=== PATIENT | female | born 1980 | race Caucasian/White ===

== ENCOUNTER 2020-01-16 09:47 | Emergency (ER) | payer MEDICAID, SELFPAY ==
[2020-01-16 09:53] VITALS: BP 128/84; PULSE 89; RESP 16; TEMP 36.8; O2SAT 98
--- NOTE | 2020-01-16 10:05 | ED_ITS ---
HPI - Extremity Problem General: Chief complaint: Extremity Problem,Nontraumatic Stated complaint: RIGHT LEG PAIN Time Seen by Provider: 01/16/20 09:54 History of Present Illness: HPI Narrative: Patient is a 39-year-old female who comes to the ED with right leg pain and swelling. Patient was and delivered her child almost 2 weeks ago on January 03. In the last 24 hours she is noticed having increased swelling in her right thigh and pain in her right thigh. She rates the pain when she sitting about a 4 out of 10 but when she gets up and moves on it she says it is about an 8 out of 10. Patient took Tylenol last night for the pain. She states she has been less active post delivery of baby. She has no history of blood clots and is not currently on any blood thinners. Denies any chest pain, shortness of breath, cough. Associated symptoms: Deny chest pain, fever(s) or rash Review of Systems Const: Denies: fever, chills or fatigue Eyes: Denies: change in vision or eye discomfort ENMT: Denies: throat pain, painful swallowing, nasal discharge or nasal congestion Card: Denies: chest pain, palpitations, edema, swelling of feet/ankles, shortness of breath on exertion or shortness of breath when lying down Resp: Denies: shortness of breath, productive cough or non-productive cough GI: Denies: abdominal pain, nausea, vomiting, diarrhea, constipation or blood in stool : Denies: flank pain, painful urination or blood in urine Musc: Reports: extremity pain (Right leg (thigh)) and extremity swelling (right leg (thigh)); Denies: neck pain or back pain Skin/Breast: Denies: rash or new lesion Neuro: Denies: headache, numbness in extremities or weakness in extremities PFS ED PFSH: Social History Smoking and tobacco status: never smoked Physical Exam Narrative: EXAM NARRATIVE: Patient is a 39-year-old female who is in no apparent distress and sitting comfortably on the exam bed when I enter the room. Const: COMMON NORMALS: oriented x3 HENMT: COMMON NORMALS: normocephalic HEAD & SCALP: normocephalic MOUTH: oral and palatal mucosa normal THROAT: posterior oropharynx normal and uvula midline Neck/C-Spine: COMMON NORMALS: supple GENERAL: Yes normal visual inspection Resp: COMMON NORMALS: normal respiratory effort, no retractions, no use of accessory muscles and clear to auscultation bilaterally AUSCULTATION: clear to auscultation bilaterally Cardio: COMMON NORMALS: regular rate, regular rhythm, S1 normal heart sound, S2 normal heart sound, no gallops, no clicks, no murmurs and peripheral pulses 2+ throughout RATE: regular rate RHYTHM: regular rhythm HEART SOUNDS: S1 normal and S2 normal PERIPHERAL PULSES: pulses 2+ throughout, posterior tibial pulses present (1+) positive right and dorsalis pedis pulses present positive right 1+ GI: COMMON NORMALS: normal to inspection, nondistended, normoactive bowel sounds, soft to palpation, non-tender and no masses PALPATION: Yes soft : COMMON NORMALS: Yes no CVA tenderness BLADDER/KIDNEY EXAM: Yes no CVA tenderness Back/Pelvis: COMMON NORMALS: no CVA tenderness Extremity: COMMON NORMALS: no pedal edema; negative for no calf tenderness RIGHT LOWER EXTREMITY: Yes upper leg Right upper leg: Yes inspection (Patient's right has some swelling compared to left thigh.), Yes palpation (Right thigh was tender upon palpation and also caused pain in thigh when palpating calf.) and Yes neurovascular exam (Intact-sensation intact and posterior tibial and dorsalis pedis 1+ pulse) Neuro: COMMON NORMALS: oriented x3 and moves all extremities Skin: COMMON NORMALS: no rashes or lesions noted GENERAL SKIN EXAM: no rashes or lesions noted and dry skin Course ED course: Well's score-2 (moderate risk group) Pt's weight 128lbs= 58.1 kg Vital Signs: Vital signs: Vital Signs Temperature 98.2 F 01/16/20 09:53 Pulse Rate 87 01/16/20 12:09 Respiratory Rate 18 01/16/20 12:09 Blood Pressure 118/74 01/16/20 12:09 Pulse Oximetry 98 01/16/20 12:09 MDM - Extremity (Nontraumatic) MDM Narrative: Medical decision making narrative: Patient is a 39-year-old female who comes to the ED with right lower extremity pain and swelling. Patient had a well's score of 2. Ultrasound of right lower extremity showed extensive acute DVT from the CFV to the peroneal trunk. Patient was given 5000 units of heparin subcutaneous while here in the ED. Patient was then sent home with a prescription for Lovenox injections twice daily. I told her to follow-up with her PCP in the next 3 to 5 days to discuss long-term management of DVT. I informed patient if she is having any shortness of breath, chest pain or coughing up blood to return to ED for reevaluation. Patient understood and agreed with plan. Imaging Data^: US Vascular: Attestation: I personally reviewed and interpreted this imaging study as follows: Radiologist's impression: [address] [place] [address] Ultrasound Report Signed Patient: Heather GUADALUPE #: [id number] : 1980Acct#:[id number] Age/Sex: 39 / FADM Date: 01/16/20 Loc: ERRoom/Bed: Attending Dr: Ordering Provider/Ordering MD: Александр Gallo Date of Service: 01/16/20 Procedure(s): [place] [address] Accession Number(s): [id number] Report Number: [id number] LOU GUADALUPE Age: 39 Gender: F : 1980 Exam Date: 01/16/2020 10:25 Ordering Phys: Александр Gallo Technologist: Leida Elkins Exam Location: [facility] [place] Indication: LEG SWELLING HISTORY: DVT. PROCEDURES: Venous duplex imaging was performed in only the right lower extremity. The following venous structures were evaluated: common femoral vein, profunda vein, proximal portion of the greater saphenous vein, superficial femoral vein, and the popliteal vein. In addition, the posterior tibial and peroneal trunk were evaluated. Serial compression, augmentation maneuvers, and spectral Doppler flow evaluation were performed. FINDINGS: Right lower extremity: there is occlusive DVT seen extending from the CFV to the peroneal trunk. Vein is dilated with acute thrombus and mildly mobile developing thrombus. CONCLUSIONS Extensive acute DVT from the CFV to the peroneal trunk. Dr. Vidhya Guerrero DO (Electronically Signed) Final Date: 16 January 2020 10:44 S Discharge Plan Discharge Patient Disposition: Home, Self-Care Clinical Impression: Deep vein thrombosis of lower extremity Qualifiers: Affected thrombotic vein of extremity: peroneal Chronicity: acute Laterality: right Qualified Code(s): I82.451 - Acute embolism and thrombosis of right peroneal vein Condition: Stable Prescriptions: New Lovenox 60 mg/0.6 mL syringe 58 mg SUBCUT Q12H 5 Days Qty: 5.8 RF: 0 No Action 28 mg iron- 800 mcg Tablet 1 tab PO DAILY RF: 0 Discharge Orders: Discharge Order (Routine); Ordered 01/16/20 Ordered By: Александр Gallo Discharge Diet: Regular Discharge Activity: Increase activity as tolerated Patient Instructions: Deep Venous Thrombosis (ED) Activity Restrictions/Additional Instructions: Follow-up with your PCP in the next 3 to 5 for reevaluation and to discuss further blood thinner medication management. Take the prescribed Lovenox twice a day. You can continue breast-feeding on this medication. Watch for signs of any increased bleeding, chest pain, shortness of breath. Return to the ED if you are experiencing any of the symptoms. Discharge Date/Time: 01/16/20 12:11 Coding Level of Care Code ED Explosive Ordnance Disposal Manager for Kera Fwd Exam Comprehensive
--- NOTE | 2020-01-16 10:10 | USCV_ITS ---
LOU GUADALUPE Age: 39 Gender: F : 1980 Exam Date: 01/16/2020 10:25 Ordering Phys: Александр Gallo Technologist: Leida Elkins [place]am [place] [facility] [place] Indication: LEG SWELLING HISTORY: DVT. PROCEDURES: Venous duplex imaging was performed in only the right lower extremity. The following venous structures were evaluated: common femoral vein, profunda vein, proximal portion of the greater saphenous vein, superficial femoral vein, and the popliteal vein. In addition, the posterior tibial and peroneal trunk were evaluated. Serial compression, augmentation maneuvers, and spectral Doppler flow evaluation were performed. FINDINGS: Right lower extremity: there is occlusive DVT seen extending from the CFV to the peroneal trunk. Vein is dilated with acute thrombus and mildly mobile developing thrombus. CONCLUSIONS Extensive acute DVT from the CFV to the peroneal trunk. Dr. Vidhya Guerrero DO (Electronically Signed) Final Date: 16 January 2020 10:44 S
[2020-01-16] MEDS: acetaminophen 500 mg Tablet PO (10:19)
[2020-01-16 11:07] VITALS: BP 113/75; PULSE 87; RESP 18; O2SAT 98
[2020-01-16 12:09] VITALS: BP 118/74; PULSE 87; RESP 18; O2SAT 98
== END 2020-01-16 12:11 | disposition home or self-care (01) ==
PROVIDERS: Emergency Provider Physician Assistant
DX: I82.451 Acute embolism and thrombosis of right peroneal vein (principal); Z86.718 Personal history of other venous thrombosis and embolism
CPT/HCPCS: 12345; 93971; 96372; 99281; 99283

== ENCOUNTER 2021-07-17 18:06 | Emergency (ER) | payer MEDICAID, SELFPAY ==
[2021-07-17 18:24] VITALS: BP 103/61; PULSE 89; RESP 18; TEMP 36.8; O2SAT 98; BMI 21.2
--- NOTE | 2021-07-17 19:10 | W.ED.ALLEREA ---
HPI - Allergic Reaction General: Chief complaint: Allergic Reaction Stated complaint: WOKE WITH HANDS/FACE SWOLLEN, RASH ALL OVER Time Seen by Provider: 07/17/21 18:41 Source: patient Mode of arrival: ambulatory Limitations: no limitations History of Present Illness: HPI narrative: 41-year-old female who states she started having a rash this morning at 3 AM. She does have a urticarial rash to her trunk face and arms. States its been pruritic in nature. She denies any worsening improving factors. Denies any history of any allergic reactions. Denies any shortness of breath. Associated symptoms: Deny abdominal pain, nausea or vomiting Review of Systems Const: Denies: fever(s), chills, body aches or change in appetite Eyes: Denies: blurry vision or eye discomfort ENMT: Denies: throat pain or dental pain Card: Denies: chest pain Resp: Denies: dyspnea GI: Denies: abdominal pain, nausea, vomiting or diarrhea : Denies: dysuria Musc: Denies: neck pain or back pain Skin/Breast: Reports: rash Neuro: Denies: headache(s) Psych: Denies: depression Igor/Lymph: Denies: easy bruising All/Imm: Denies: urticaria PFSH ED PFSH: Social History Smoking and tobacco status: never smoked Physical Exam Const: COMMON NORMALS: no acute distress, patient oriented x3 and healthy appearing HENMT: COMMON NORMALS: normocephalic and atraumatic HEAD & SCALP: normocephalic and atraumatic Eye: COMMON NORMALS: Equal, round and reactive pupils present and EOMs intact bilaterally PUPIL: Yes Equal, round and reactive pupils present Neck/C-Spine: COMMON NORMALS: full ROM and supple Chest: COMMONS NORMALS: normal inspection of the chest and normal palpation of entire chest wall Resp: COMMON NORMALS: normal respiratory effort, No retractions, No use of accessory muscles and clear to auscultation bilaterally AUSCULTATION: clear to auscultation bilaterally Cardio: COMMON NORMALS: regular rate, regular rhythm and No murmurs present (Cardio) RATE: regular rate RHYTHM: regular rhythm GI: COMMON NORMALS: Normal to inspection, nondistended, normoactive bowel sounds present, Soft to palpation, non-tender and no masses PALPATION: Yes Soft to palpation Extremity: COMMON NORMALS: normal to inspection and full ROM Neuro: COMMON NORMALS: patient oriented x3, moves all extremities and no focal motor deficits Psych: COMMON NORMALS: mental status grossly normal, Normal thought process present and cooperative THOUGHT PROCESS: Normal thought process present Skin: COMMON NORMALS: no wounds NARRATIVE SKIN EXAM: Urticarial rash to trunk arms and face Course Vital Signs: Vital signs: Vital Signs Temperature 98.4 F 07/17/21 19:45 Pulse Rate 72 07/17/21 19:45 Respiratory Rate 16 07/17/21 19:45 Blood Pressure 119/79 07/17/21 19:45 Pulse Oximetry 100 07/17/21 19:45 MDM - Allergic Reaction MDM Narrative: Medical decision making narrative: Patient presents here with urticaria with no airway involvement. She is well-appearing here and improving. She take Benadryl Pepcid at home and will prescribe prednisone. She is to follow-up with PCP in 3 to 5 days return if worsening. She understands agrees to plan. Discharge Plan Discharge Patient Disposition: Home Clinical Impression: Urticaria Condition: Stable Prescriptions: New prednisone 50 mg tablet 50 mg PO DAILY Qty: 5 RF: 0 No Action 28 mg iron- 800 mcg Tablet 1 tab PO DAILY RF: 0 Discharge Orders: Discharge ED (Routine); Ordered 07/17/21 Ordered By: Steph Fisher Discharge Diet: Advance as tolerated Discharge Activity: Resume usual activity Patient Instructions: Urticaria (ED) Coding Level of Care Code ED Mobile Lounge Driver for Kera Ugalde Exam Comprehensive
[2021-07-17] MEDS: famotidine 20 mg/2 mL INJ 40 MG IVP (19:25)
[2021-07-17] MEDS: diphenhydrAMINE 50 mg/mL SDV 1mL IVP (19:25)
[2021-07-17 19:45] VITALS: BP 119/79; PULSE 72; RESP 16; TEMP 36.9; O2SAT 100
[2021-07-17 20:09] VITALS: BP 113/73; PULSE 82; RESP 16; O2SAT 99
== END 2021-07-17 20:10 | disposition home or self-care (01) ==
PROVIDERS: Emergency Provider Emergency Medicine
DX: L50.9 Urticaria, unspecified (principal)
CPT/HCPCS: 96374; 96375; 99283; J1200; J2930; J3490

== ENCOUNTER → 2021-07-19 08:11 | Outpatient (BNVA) | payer MEDICAID, SELFPAY | PROVIDERS: Visit Provider Family Medicine | DX: L50.9 Urticaria, unspecified (principal) | CPT/HCPCS: 80053; 81000; 85025 ==

== ENCOUNTER → 2021-07-20 07:52 | Outpatient (BNVA) | payer MEDICAID, SELFPAY | PROVIDERS: Visit Provider Nurse Practitioner Family | DX: L50.9 Urticaria, unspecified (principal) | CPT/HCPCS: 86003 ==

== ENCOUNTER → 2021-09-15 09:39 | Outpatient (BNVA) | payer MEDICAID, SELFPAY | PROVIDERS: Visit Provider Nurse Practitioner Family | DX: R35.0 Frequency of micturition (principal); R30.0 Dysuria | CPT/HCPCS: 80048; 81000 ==

== ENCOUNTER → 2022-10-06 13:26 | Outpatient (BNVA) | payer MEDICAID, SELFPAY | PROVIDERS: Visit Provider Nurse Practitioner Family | DX: R05.9 Cough, unspecified (principal); R50.9 Fever, unspecified | CPT/HCPCS: 87400; 87426 ==

== ENCOUNTER → 2022-11-22 15:48 | Outpatient (BNVA) | payer BC, SELFPAY | PROVIDERS: Visit Provider Nurse Practitioner Family | DX: R45.86 Emotional lability (principal); R53.83 Other fatigue; R68.82 Decreased libido; E53.8 Deficiency of other specified B group vitamins; E55.9 Vitamin D deficiency, unspecified | CPT/HCPCS: 80053; 82306; 82607; 82672; 83001; 83002; 84144; 84443; 85025 ==

== ENCOUNTER → 2023-08-07 10:28 | Outpatient (BNVA) | payer MEDICAID, SELFPAY | PROVIDERS: PCP Nurse Practitioner Family; Visit Provider Nurse Practitioner Family | DX: R30.9 Painful micturition, unspecified (principal) | CPT/HCPCS: 81003; 87077; 87086; 87184 ==

== ENCOUNTER → 2023-09-04 11:20 | Outpatient (BNVA) | payer MEDICAID, SELFPAY | PROVIDERS: PCP Nurse Practitioner Family; Visit Provider Nurse Practitioner Family | DX: M25.40 Effusion, unspecified joint (principal); M25.50 Pain in unspecified joint; E53.8 Deficiency of other specified B group vitamins; E55.9 Vitamin D deficiency, unspecified | CPT/HCPCS: 73130 ==

== ENCOUNTER → 2023-09-05 09:07 | Outpatient (BNVA) | payer MEDICAID, SELFPAY | PROVIDERS: PCP Nurse Practitioner Family; Visit Provider Nurse Practitioner Family | DX: M25.50 Pain in unspecified joint (principal); M25.40 Effusion, unspecified joint; M25.541 Pain in joints of right hand; M25.542 Pain in joints of left hand; R53.82 Chronic fatigue, unspecified; E53.8 Deficiency of other specified B group vitamins; E55.9 Vitamin D deficiency, unspecified | CPT/HCPCS: 80053; 82306; 82607; 85025; 85651; 86140; 86160; 86162; 86200; 86235; 86255; 86376 ==

== ENCOUNTER → 2024-06-26 09:00 | Outpatient (BNVA) | payer BC, SELFPAY | PROVIDERS: PCP Nurse Practitioner Family; Visit Provider Nurse Practitioner Family | DX: R45.86 Emotional lability (principal); E53.8 Deficiency of other specified B group vitamins; E55.9 Vitamin D deficiency, unspecified; M25.541 Pain in joints of right hand; M25.542 Pain in joints of left hand; R53.82 Chronic fatigue, unspecified | CPT/HCPCS: 80053; 82306; 82607; 84443; 85025; 85651; 86140; 86160; 86618; 86666; 86668; 86757 ==

== ENCOUNTER 2024-07-17 10:28 | Emergency (ER) | payer BC, MEDICAID, SELFPAY ==
[2024-07-17 10:34] VITALS: BP 116/72; PULSE 73; RESP 18; TEMP 36.8; O2SAT 99; BMI 19.8
--- NOTE | 2024-07-17 10:47 | USCV_ITS ---
Kassie Corral Age: 44 Gender: F : 1980 Exam Date: 07/17/2024 11:03 Ordering Phys: Steph Fisher MD Technologist: CT Exam Location: [facility] [place]_ Indication: palp area/pain PROCEDURES: Venous duplex imaging was performed in only the left lower extremity. The following venous structures were evaluated: common femoral vein, profunda vein, proximal portion of the greater saphenous vein, superficial femoral vein, and the popliteal vein. In addition, the posterior tibial and peroneal trunk were evaluated. FINDINGS: Normal 2-D Doppler and augmentation and compressibility throughout the lower extremity venous structures. Additional imaging through the proximal calf veins also reveals no thrombus. Superficial thrombophlebitis lesser saphenous vein. CONCLUSIONS Acute superficial thrombophlebitis lesser saphenous vein. No DVT. Dr. Vidhya Guerrero DO (Electronically Signed) Final Date: 17 July 2024 14:27 S
--- NOTE | 2024-07-17 10:47 | XRR_ITS ---
PROCEDURE INFORMATION: Exam: XR Chest Exam date and time: 07/17/2024 11:01 AM Age: 44 years old Clinical indication: Pain; Angina pectoris; Additional info: Cp TECHNIQUE: Imaging protocol: Radiologic exam of the chest. Views: 1 view. Total images: 3 COMPARISON: No relevant prior studies available. FINDINGS: Lungs: Benign granulomatous disease of the lung is noted. Pleural spaces: Unremarkable. No pleural effusion. No pneumothorax. Heart/Mediastinum: Calcified nodes in the right hilar area. Bones/joints: Unremarkable. XR/XR chest 1V portable [id number] IMPRESSION: No acute cardiopulmonary process.
[2024-07-17 11:46] LABS: Basophils % 0.6 %; Eosinophils % 0.3 %; Hematocrit 42.3 % (36-47); Lymphocytes # 0.9 10^3/uL (0.8-4.8); Lymphocytes % 13.7 %; Mean Corpuscular HGB Conc 33.3 g/dL (30-55); Mean Corpuscular Hemoglobin 31.8 pg (27-33); Mean Corpuscular Volume 95.5 fl (85-98); Mean Platelet Volume 9.7 fL (7.4-10.4); Monocytes # 0.4 10^3/uL (0.2-0.9); Monocytes % 5.4 %; Neutrophils # 5.28 10^3/uL (1.8-7.7); Neutrophils % 79.7 %; Nucleated Red Blood Cells % 0 %; Platelet Count 257 10^3/cmm (157-399); Red Blood Count 4.43 10^6/uL (3.85-5.65); Red Cell Distribution Width 11.3 % (12.1-15.1); White Blood Count 6.63 10^3/uL (3.29-11.43)
--- NOTE | 2024-07-17 11:49 | ED_ITS ---
HPI - Extremity Problem 2 General: Chief complaint: Extremity Problem,Nontraumatic Stated complaint: knot on leg / rt side numbness Time Seen by Provider: 07/17/24 10:50 Source: patient Mode of arrival: ambulatory Limitations: no limitations History of Present Illness: 44-year-old female states she has had a knot on her left knee for couple weeks states she has been exposed to have an ultrasound rule DVT states she was coming here today to have it checked out states normally she is also having some palpitations and feeling a little anxious she denies any symptoms currently she denies any chest pain denies any fevers Associated symptoms: Deny chest pain, fever(s) or rash Related Data Home Medications Medication Instructions Recorded Confirmed escitalopram oxalate 10 mg tablet 10 mg PO DAILY 07/17/24 07/17/24 Allergies Allergy/AdvReac Type Severity Reaction Status Date / Time lidocaine Allergy ALGY-Rash Verified 07/08/24 14:35 alpha gal Allergy ALGY-Hives Uncoded 07/08/24 14:35 Review of Systems 2 Const: Denies: fever(s), chills, body aches or change in appetite Eyes: Denies: blurry vision or eye discomfort ENMT: Denies: throat pain or dental pain Card: Reports: palpitations; Denies: chest pain Resp: Denies: dyspnea GI: Denies: abdominal pain, nausea, vomiting or diarrhea Musc: Reports: extremity pain; Denies: neck pain or back pain Skin/Breast: Denies: rash Neuro: Denies: headache(s) PFSH ED 2 PFSH: Social History Smoking and tobacco/nicotine status: never used tobacco/nicotine Alcohol intake: current Alcohol intake frequency: 3 or more drinks per day Female Reproductive History: Spontaneous abortions: No Physical Exam 2 Const: COMMON NORMALS: no acute distress, patient oriented x3 and healthy appearing HENMT: COMMON NORMALS: normocephalic and atraumatic HEAD & SCALP: n ormocephalic and atraumatic Eye: COMMON NORMALS: conjunctivae normal CONJUNCTIVA: Yes conjunctivae normal Neck/C-Spine: COMMON NORMALS: full ROM and supple Chest: COMMONS NORMALS: normal inspection of the chest Resp: COMMON NORMALS: normal respiratory effort, No retractions, No use of accessory muscles and clear to auscultation bilaterally AUSCULTATION: clear to auscultation bilaterally Cardio: COMMON NORMALS: regular rate, regular rhythm and No murmurs present (Cardio) RATE: regular rate RHYTHM: regular rhythm Extremity: COMMON NORMALS: full ROM NARRATIVE EXTREMITY EXAM: Not noted to posterior left leg no distal pulses sensation intact no redness or warmth Neuro: COMMON NORMALS: patient oriented x3, moves all extremities and no focal motor deficits Psych: COMMON NORMALS: mental status grossly normal, Normal thought process present and cooperative THOUGHT PROCESS: Normal thought process present Skin: COMMON NORMALS: no rashes or lesions noted and no wounds GENERAL SKIN EXAM: no rashes or lesions noted Course 2 Vital Signs: Vital signs: Vital Signs Temperature 98.2 F 07/17/24 10:34 Pulse Rate 64 07/17/24 12:05 Respiratory Rate 16 07/17/24 12:05 Blood Pressure 141/81 07/17/24 12:05 Pulse Oximetry 99 07/17/24 12:05 Oxygen Delivery Me thod Room Air 07/17/24 12:05 MDM - Extremity (Nontraumatic) Medical Decision Making Patient presents here with left leg pain as well as small knot noted ultrasound showed no DVT no signs of abscess blood work here is normal had some palpitations no signs of ACS patient stable for discharge follow-up PCP return for worsening Medical Records I reviewed the patient's medical records. Lab Data I reviewed the patient's lab results. 07/17/24 11:39 07/17/24 11:39 Radiology Impressions Chest X-Ray 07/17/24 10:47 IMPRESSION: No acute cardiopulmonary process. Laboratory Results WBC 6.63 10^3/uL (3.29-11.43) 07/17/24 11:39 RBC 4.43 10^6/uL (3.85-5.65) 07/17/24 11:39 Hgb 14.10 g/dL (11.27-16.99) 07/17/24 11:39 Hct 42.3 % (36-47) 07/17/24 11:39 MCV 95.5 fl (85-98) 07/17/24 11:39 MCH 31.8 pg (27-33) 07/17/24 11:39 MCHC 33.3 g/dL (30-55) 07/17/24 11:39 RDW 11.3 % (12.1-15.1) L 07/17/24 11:39 Plt Count 257 10^3/cmm (157-399) 07/17/24 11:39 MPV 9.7 fL (7.4-10.4) 07/17/24 11:39 Neut % (Auto) 79.7 % 07/17/24 11:39 Lymph % (Auto) 13.7 % 07/17/24 11:39 [place] % (Auto) 5.4 % 07/17/24 11:39 Eos % (Auto) 0.3 % 07/17/24 11:39 Baso % (Auto) 0.6 % 07/17/24 11:39 Neut # (Auto) 5.28 10^3/uL (1.8-7.7) 07/17/24 11:39 Lymph # (Auto) 0.9 10^3/uL (0.8-4.8) 07/17/24 11:39 [place] # (Auto) 0.4 10^3/uL (0.2-0.9) 07/17/24 11:39 Eos # (Auto) 0.0 10^3/uL (0.0-0.8) 07/17/24 11:39 Baso # (Auto) 0.0 10^3/uL (0.0-0.1) 07/17/24 11:39 Nucleated RBC % (auto) 0 % 07/17/24 11:39 Nucleated RBCs # 0.0 /100WBC 07/17/24 11:39 Sodium 142 mmol/L (136-145) 07/17/24 11:39 Potassium 4.2 mmol/L (3.5-5.1) 07/17/24 11:39 Chloride 105 mmol/L (98-107) 07/17/24 11:39 Carbon Dioxide 25 mmol/L (22-29) 07/17/24 11:39 Anion Gap 16.2 (5-19) 07/17/24 11:39 BUN 8 mg/dL (6-20) 07/17/24 11:39 Creatinine 0.6 mg/dL (0.5-0.9) 07/17/24 11:39 GFR Calculation 109.6 mL/min (90-130) 07/17/24 11:39 Glucose 91 mg/dL (65-115) 07/17/24 11:39 Calculated Osmolality 292 mOsm/kg (285-295) 07/17/24 11:39 Calcium 9.1 mg/dL (8.5-10.5) 07/17/24 11:39 Total Bilirubin 0.7 mg/dL (0.15-1.2) 07/17/24 11:39 AST 20 U/L (0-32) 07/17/24 11:39 ALT 15 U/L (0-33) 07/17/24 11:39 Alkaline Phosphatase 38 U/L (35-105) 07/17/24 11:39 Troponin T Baseline < 6 ng/L (0-10) 07/17/24 11:39 Total Protein 7.3 g/dL (6.6-8.7) 07/17/24 11:39 Albumin 4.9 g/dL (3.5-5.2) 07/17/24 11:39 Globulin 2.4 g/dL (1.3-4.6) 07/17/24 11:39 All radiology interpretation(s) finalized by discharge Discharge Plan Discharge Patient Disposition: Home Clinical Impression: Left leg pain Condition: Stable Prescriptions: No Action escitalopram oxalate 10 mg tablet 10 mg PO DAILY Discharge Orders: Discharge ED (Routine); Ordered 07/17/24 Ordered By: Steph Fisher Referrals: Lisbet Laws NP [Primary Care Provider] - 4-7 days Discharge Diet: Advance as tolerated Discharge Activity: Resume usual activity Patient Instructions: Leg Pain (ED) Coding Level of Care Code ED Conservation Science Teacher for Kera Ugalde
[2024-07-17 12:05] VITALS: BP 141/81; PULSE 64; RESP 16; O2SAT 99
[2024-07-17 12:06] LABS: Troponin(5th) Baseline < 6 ng/L (0-10)
[2024-07-17 12:15] LABS: Alanine Aminotransferase 15 U/L (0-33); Albumin Level 4.9 g/dL (3.5-5.2); Alkaline Phosphatase 38 U/L (35-105); Anion Gap 16.2 (5-19); Aspartate Amino Transferase 20 U/L (0-32); Blood Urea Nitrogen 8 mg/dL (6-20); Calcium 9.1 mg/dL (8.5-10.5); Carbon Dioxide 25 mmol/L (22-29); Chloride 105 mmol/L (98-107); Creatinine Clr Calc Pharmacy 99.8073; Globulin 2.4 g/dL (1.3-4.6); Glomerular Filtration Rate 109.6 mL/min (90-130); Glucose 91 mg/dL (65-115); Osmolality Calculated 292 mOsm/kg (285-295); Potassium 4.2 mmol/L (3.5-5.1); Sodium 142 mmol/L (136-145); Total Bilirubin 0.7 mg/dL (0.15-1.2); Total Protein 7.3 g/dL (6.6-8.7)
[2024-07-17 12:49] VITALS: BP 111/67; PULSE 67; RESP 16; O2SAT 99
== END 2024-07-17 12:35 | disposition home or self-care (01) ==
PROVIDERS: Emergency Provider Emergency Medicine; PCP Nurse Practitioner Family
DX: M79.605 Pain in left leg (principal)
CPT/HCPCS: 36415; 71045; 80053; 84484; 85025; 93971; 99285

== ENCOUNTER 2024-08-21 08:45 | Outpatient (CLI) | payer BC, MEDICAID, SELFPAY ==
--- NOTE | 2024-08-21 08:46 | MR_ITS ---
WS: [id number] MRI BRAIN WITHOUT CONTRAST HISTORY: VERTIGO, OTHER VISUAL DISTURBANCES COMPARISON: None available. TECHNIQUE: Diffusion imaging, multiplanar T1, T2 and FLAIR imaging obtained. No evidence for acute infarct or hemorrhage. Membreno-white matter differentiation is normal. No remote or acute infarcts are volume loss. Ventricles and extra-axial spaces are normal. No inferior displacement of cerebellar tonsils. The sella turcica and pituitary gland are unremarkabl e. Dural venous sinuses and [place] of [place] demonstrate no abnormality on this unenhanced studies. Paranasal sinuses: Clear. Mastoid air cells: Normal. Calvarium and scalp: Intact. MR/MR head wo con* [id number] IMPRESSION: 1. Unremarkable noncontrast MRI brain.
== END 2024-08-21 08:46 | disposition home or self-care (01) ==
PROVIDERS: PCP Nurse Practitioner Family; Visit Provider Nurse Practitioner
DX: R51.9 Headache, unspecified (principal); R42 Dizziness and giddiness; H53.8 Other visual disturbances
CPT/HCPCS: 70551